=== PATIENT | male | born 1940 | race Caucasian/White ===

== ENCOUNTER → 2019-01-26 | Outpatient (CLI) | payer OTHER ==
[~2019-01-26] MED LIST: ELIQUIS5 MG PO; FLONASE 0.05%50 MCG NASAL; PRAVACHOL80 MG PO; PRILOSEC 20 MG20 MG PO; PRINIVIL5 MG PO; XANAX 0.5 MG0.5 MG PO
== END ==
LOC: M.MRI 07:55
DX: S83.272A Complex tear of lateral meniscus, current injury, left knee, initial encounter (principal); S83.242A Other tear of medial meniscus, current injury, left knee, initial encounter; M17.12 Unilateral primary osteoarthritis, left knee; M25.762 Osteophyte, left knee; M25.462 Effusion, left knee; M94.262 Chondromalacia, left knee; M65.862 Other synovitis and tenosynovitis, left lower leg; G89.29 Other chronic pain; X58.XXXA Exposure to other specified factors, initial encounter; Y93.89 Activity, other specified; Y92.89 Other specified places as the place of occurrence of the external cause; Y99.8 Other external cause status

== ENCOUNTER 2019-02-09 08:59 | Inpatient (IN) | payer OTHER ==
[2019-01-29 09:32] LABS: ABSOLUTE BASOPHILS 0.1 thou/uL (0.0-0.2); ABSOLUTE EOSINOPHILS 0.2 thou/uL (0.0-0.7); ABSOLUTE LYMPHOCYTES 0.9 thou/uL (0.8-5.3); ABSOLUTE MONOCYTES 0.3 thou/uL (0.0-1.2); ABSOLUTE NEUTROPHILS 3.8 thou/uL (1.6-8.1); BASOPHILS 1.1 %; EOSINOPHILS 3.7 %; HEMOGLOBIN 14.2 gm/dL (14.0-18.0); LYMPHOCYTES 16.8 %; MCH 29.5 pg (26.0-34.0); MCHC 33.7 g/dL (28.0-37.0); MCV 87.7 fL (80.0-100.0); MONOCYTES 5.3 %; MPV 8.3 fl. (7.2-11.1); NUCLEATED RBCS 0 /100WBC; PLATELET COUNT* 168 thou/uL (150-400); POLYS 73.1 %; RBC 4.79 mil/uL (4.50-6.00); RDW-CV 13.8 % (10.5-14.5); WBC 5.2 thou/uL (4.0-11.0)
[2019-01-29 09:40] LABS: APTT 32.2 Seconds (25.0-31.3); INR 1.1; PROTIME 11.6 Seconds (9.20-11.50)
[2019-01-29 09:48] LABS: ALBUMIN 3.7 g/dL (3.4-5.0); CREATININE 1.3 mg/dL (0.6-1.3); POTASSIUM 4.2 mmol/L (3.5-5.1); TOTAL BILIRUBIN 0.7 mg/dL (<0.1-1.0); TOTAL PROTEIN 7.6 g/dL (6.4-8.2)
[2019-01-29 10:33] LABS: ESR (SEDRATE) 30 mm/hr (0-20)
--- NOTE | 2019-01-29 15:08 | EKG ---
[place] [address] ELECTROCARDIOGRAM REPORT Name: GLENNY KIMBLE Room: [facility]#: [id number] Admission: Attend Phys: Kathy Ro Discharge: Date of : 38 Report #: [id number] THIS REPORT FOR: //name// [facility] Test Date: 2019-01-29 Test Time: 09:19:56 Pat Name: GLENNY KIMBLE Department: Room: Gender: M It Business Analyst: : 1940 Requested By: Laureano Hooker Order Number: [id number] Reading MD: Sid Adorno Measurements Intervals [place] Rate: 59 P: 10 OK: 213 QRS: 36 QRSD: 107 T: 12 QT: 424 QTc: 420 Interpretive Statements Sinus rhythm Borderline prolonged OK interval Low voltage, extremity and precordial leads Compared to ECG 02/21/2006 13:38:36 Low QRS voltage now present Atrial fibrillation no longer present ST (T wave) deviation no longer present Electronically Signed On 01-29-2019 15:07:59 CDT by Sid Adorno [email or web address] <ELECTRONICALLY SIGNED> By: Sid Adorno MD, [facility] 01/29/19 1507 8 8 Sid Adorno MD, [facility] /EPI
[2019-01-29 22:06] LABS: GLYCOHEMOGLOBIN (HGB A1C) 5.6 % (4.8-5.6)
[~2019-02-09] VITALS: Ht 185.4 cm; Wt 106.6 kg
[2019-02-09] MEDS ORDERED: DILTIAZEM 24HR180 M1 PO (09:32)
[2019-02-09] MEDS ORDERED: RESVERATROL250 MG PO (09:41)
[2019-02-09 10:00] VITALS: BP 137/65
[2019-02-09 15:36] VITALS: BP 112/62
--- NOTE | 2019-02-09 16:23 | NUR ---
PT ADMITTED TO UNIT. PT IS ALERT AND ORIENTED. PT HAD LEFT KNEE REPLACEMENT, DRESSING C.D.I. ICE PACK TO KNEE. PULSES 2+. PT IS ON 2 LITERS O2 WITH CAPNO IN PLACE. PT IS RESTING IN BED, WEIGHT BEARING TOLERATED. PT HAS A HISTORY OF [place], WILL BE X2 ASSIST WITH WALKER AND GAIT BELT WHILE AMBULATING. PT HAS STEPHANIE HOSE ON BILAT, SCD IN PLACE. PT STATES PAIN MINIMAL AND WANTS TO WAIT FOR PAIN MEDS, PT EDUCATED ON KEEPING ON TOP OF PAIN MEDS, AND TO HIT CALL LIGHT WHEN READY. FALL RISK PRECAUTIONS IN PLACE. WILL CONTINUE TO MONITOR.
--- NOTE | 2019-02-09 17:07 | NUR ---
PT REMAINED ALERT AND ORIENTED. PT RESTING IN BED. PAIN MEDS GIVEN ORDERED. FALL RISK PRECAUTIONS IN PLACE. HOURLY ROUNDING COMPLETED. WILL CONTINUE TO MONITOR.
[2019-02-10] VITALS (7 sets, daily range): BP systolic 99–101; BP diastolic 59–60
[2019-02-10 04:35] LABS: CALCIUM 9.2 mg/dL (8.5-10.1); CREATININE 1.3 mg/dL (0.6-1.3); MAGNESIUM 1.6 mg/dL (1.8-2.4); POTASSIUM 5.5 mmol/L (3.5-5.1)
--- NOTE | 2019-02-10 04:45 | NUR ---
PT REMAINED A&O X 4. VITALS, SpO2 STABLE. PAIN CONTROLLED WITH OXY IR. NO NAUSEA OR VOMITING. IV ANTIBIOTICS GIVEN ORDERED. PT VOID WITH NO ISSUE. DRESSING ON L KNEE CLEAN AND INTACT. PT EDUCATED ON PAIN MANAGEMENT AND VERBALIZED UNDERSTANDING. ICE PACK IN PLACE. WILL CONTINUE TO MONITOR.
[2019-02-10 05:10] LABS: HEMATOCRIT 37.1 % (42.0-52.0); HEMOGLOBIN 12.7 gm/dL (14.0-18.0); MCH 29.7 pg (26.0-34.0); MCHC 34.3 g/dL (28.0-37.0); MCV 86.7 fL (80.0-100.0); MPV 8.4 fl. (7.2-11.1); NUCLEATED RBCS 0 /100WBC; PLATELET COUNT* 177 thou/uL (150-400); RBC 4.27 mil/uL (4.50-6.00); RDW-CV 13.7 % (10.5-14.5); WBC 10.4 thou/uL (4.0-11.0)
[2019-02-10 06:04] LABS: ABSOLUTE LYMPHOCYTES 0.5 thou/uL (0.8-5.3); ABSOLUTE MONOCYTES 0.2 thou/uL (0.0-1.2); ABSOLUTE NEUTROPHILS 9.7 thou/uL (1.6-8.1); ANISOCYTOSIS 1+; PLATELET ESTIMATE ADEQUATE; POIKILOCYTOSIS 1+
--- NOTE | 2019-02-10 10:06 | EKG ---
[place] [address] ELECTROCARDIOGRAM REPORT Name: GLENNY KIMBLE Room: [address] ADM IN M.R.#: [id number] Admission: 02/09/19 Attend Phys: Kathy Ro Discharge: Date of : 38 Report #: [id number] THIS REPORT FOR: //name// [facility] Test Date: 2019-02-10 Test Time: 08:24:07 Pat Name: GLENNY KIMBLE Department: Room: [address] Gender: M Senior Power Plant Operator: : 1940 Requested By: Rajesh Culver Order Number: [id number] Reading MD: Cam Tang Measurements Intervals [place] Rate: 52 P: ND: QRS: 47 QRSD: 105 T: 54 QT: 433 QTc: 403 Interpretive Statements nsr bradycardia Low voltage, precordial leads Compared to ECG 01/29/2019 09:19:56 Junctional rhythm now present Sinus rhythm no longer present Electronically Signed On 02-10-2019 10:05:35 CDT by Cam Tang [email or web address] <ELECTRONICALLY SIGNED> By: Cam Tang MD, [facility] 02/10/19 1005 0824 0824 Cam Tang MD, [facility] /EPI
[2019-02-10] MEDS ORDERED: SENNA PLUS TAB1 EACH PO (14:47)
--- NOTE | 2019-02-10 14:57 | NUR ---
PT.LIVES AT HOME WITH . SHE WILL BE ABLE TO ASSIST HIM NEEDED. HE HAS 12 STAIRS TO GET INSIDE HIS HOME BUT DID STAIRS WITH THERAPY AND DID FINE. E HAS A FWW IN ROOM FROM HOME. IS ALREADY ON A BLOOD THINNER AT HOME FOR AFIB-ELIQUIS 5 MG. HE IS NORMALLY INDEPENDENT AT HOME. HE WENT TO [facility] PRIOR TO [facility] AND WOULD LIKE TO USE THEM AGAIN.
[2019-02-10] MEDS ORDERED: TRAMADOL 50 MG50 MG PO (15:00)
[2019-02-10] MEDS ORDERED: OXYCODONE HCL 55 MG PO (15:01)
--- NOTE | 2019-02-10 15:49 | NUR ---
PT GIVEN PRESCRIPTIONS, CARE NOTES, AND DISCHARGE ORDERS. IV REMOVED. OUTPATIENT THERAPY SET UP. PT DENIED ANY FURTHER QUESTIONS. FALL RISK PRECAUTIONS IN PLACE. HOURLY ROUNDING COMPLETED. PT LEFT WITH SPOUSE WITH WHEELCHAIR TO HOME.
--- NOTE | 2019-02-10 17:08 | NUR ---
RECIEVED O.T. ORDER. WILL DEFER TO P.T. AT THIS TIME. PLEASE ORDER FURTHER O.T. SERVICES IF NEEDED.
--- NOTE | 2019-02-11 07:44 | OP ---
[address] [address] OPERATIVE REPORT Name: GLENNY KIMBLE Room: [address] IN M.R.#: [id number] Admission: 02/09/19 Attend Phys: Kathy Ro Discharge: 02/10/19 Date of : 38 Report #: [id number] THIS REPORT FOR: //name// CC: Laureano Vivar DICTATED BY: Mc Bill DO DATE OF SERVICE: 02/09/2019 PREOPERATIVE DIAGNOSIS: Left knee advanced degenerative joint disease. POSTOPERATIVE DIAGNOSIS: Left knee advanced degenerative joint disease. OPERATION PERFORMED: Left total knee arthroplasty utilizing [employer] Visionaire system with the following components: 1. A size 9 left cruciate stabilized Oxinium femoral components. 2. A size 8 left Journey tibial baseplate. 3. A size 38 mm oval patellar component. 4. A size 9 mm thickness articular insert. 5. Two bags of Palacos regular bone cement. SURGEON: Laureano Hooker DO BACON SKINNER: Mc Bill DO ANESTHESIA: General plus local. ESTIMATED BLOOD LOSS: 100 mL ANTIBIOTICS: IV Ancef 2 g given preoperatively. COMPLICATIONS: None. DISPOSITION: Stable to PACU. FLUIDS: Lactated Ringer's. DRAINS: None. SPECIMENS: None. INDICATIONS: The patient is a pleasant 78-year-old male who has been followed in orthopedic clinic for his longstanding left knee pain. He had attempted and failed conservative trials with anti-inflammatories, exercise program with [facility] [address] [place] [address] OPERATIVE REPORT Name: GLENNY KIMBLE Ara Room: [address] IN M.R.#: [id number] Admission: 02/09/19 Attend Phys: Kathy Ro Discharge: 02/10/19 Date of : 38 Report #: [id number] attempted weight loss and intra-articular steroid injections. Despite trying all of these things, he continued to suffer with knee pain, which was impacting his overall quality of life and making it difficult for him to perform his activities of daily living; therefore, we did recommend a total knee arthroplasty for him. Risks, indications and treatment alternatives were reviewed in great detail, and the patient was in agreement with this treatment plan. He did sign informed consent. DESCRIPTION OF PROCEDURE: The patient was identified in the preoperative holding area. Questions were answered. He identified the left knee as operative side. This was marked. He was transferred to the operating suite and placed in the supine position where general anesthesia was then induced. A well-padded tourniquet was placed on left proximal thigh. This was inflated for a total of 66 minutes throughout the procedure to 295 mmHg. Left lower extremity was then sterilely prepped and draped in usual fashion. Timeout was then performed to confirm our safety checklist. Everyone in room was in agreement. A standard midline incision was marked out. A 20 blade scalpel was then used to sharply dissect through skin and subcutaneous tissue down to the level of capsule. The capsule layer was cleaned off and a new scalpel was then used to perform our standard medial parapatellar incision. At this time, the standard subperiosteal flaps were developed off the proximal tibia. The patella was then everted and the large portion of the fat pad, which was scarred was excised. Anterior cruciate ligament was also excised along with excessive synovium, which was in the notch. Our premade distal femur cutting block was then locked into position. This fit very nicely and had been excellent fit onto the distal femur. It is where this was then pinned into position. Our distal femur cut was then made through the premade block. We then proceeded with our planned distal femur cut with a size 9 5-in-1 cutting block. Cutting block was then pinned into position and the cuts were made sequentially beginning with the anterior and anterior chamfer followed by posterior condylar and the other chamfer cuts. Cutting block was then removed along with the cut surfaces. Attention was then taken to the proximal tibia where our premade cutting block was placed into position. This was found to also fit very nicely. This was pinned into position and reciprocating saw was used through the cutting block to make our proximal tibial cut while we made sure to protect our medial, lateral and posterior structures. Cutting block was then removed and an osteotome and bone tenaculum were used to free our tibial cut. This was released from the soft tissues with electrocautery. At this time, excessive osteophytes and meniscal remnants along with the ACL remnant were removed. The bony cut surfaces were thoroughly irrigated. Our femur box cut was then made with the reamer and punch through the box cut guide. This was removed along with the bony cut surfaces. We made sure that all the bone was removed from it. A trial tibia was then pinned into position in the appropriate rotation utilizing our premade pin holes. The appropriate size spacer was then placed and the knee was taken through full range of motion and was found to have excellent extension and flexion and was stable and varus and valgus stressing. Attention was taken to [address] [address] OPERATIVE REPORT Name: GLENNY KIMBLE Room: [address] IN [place].#: [id number] Admission: 02/09/19 Attend Phys: Kathy Ro Discharge: 02/10/19 Date of : 38 Report #: [id number] the patella. This was found to have severe degenerative changes; therefore, we did proceed with resurfacing. The Biomet reaming system was utilized. The patella was sized. The appropriate sized reamer was clamped into position. This was then reamed down to an approximately 16 mm thickness. This was found to remove all diseased cartilage and to give us a nice flat smooth surface. The patella was then sized and appropriate peg hole guide was used to drill the patellar peg holes. A patellar trial was then placed through full range of motion and was found to track appropriately. The trial spacer and patellar components were then removed along with the trial femoral component. The tibia was then reamed and punched through the tibial trial. The trial baseplate was then removed and the bony cut surfaces were thoroughly irrigated and the bony debris was removed. The bony cut surfaces were dried and meanwhile, the bone cement was mixed on the back table. This was applied to the back surfaces of the components as well as within the interstices of the bone. The anesthetic cocktail was used to inject the posterior capsule as well as some was used in the periosteum and surrounding subcutaneous tissues. A final tibial component was impacted into position followed by the femoral components and finally, the patellar component was clamped into position. All the excessive bone cement was removed. The knee was once again taken through a full range of motion and was found to have excellent extension, flexion and stability throughout range of motion with a 9 mm tibial bearing; therefore, this was selected as our final component. This was swapped out for the trial component and once again finally taken through range of motion and was found to have 0-135 degrees of motion with symmetrical medial and lateral gapping. The knee was then held at 90 degrees of flexion while the cement was allowed to dry. The knee was thoroughly irrigated and vancomycin powder was sprinkled throughout. The capsule layer was then closed with #1 Vicryl suture followed by running #1 Quill. The PRP was then injected into the capsule. The knee was once again irrigated. The dermal layer was then closed with simple interrupted 2-0 Monocryl suture. A running 3-0 Stratafix suture was then used on the subcuticular layer. Dermabond skin glue was then placed on the skin. A sterile Mepilex dressing was applied. STEPHANIE hose were then applied. The patient was awakened from general anesthetic and transferred to the PACU in stable condition. Sponge and needle counts were correct x 2. Postoperatively, the patient will receive 2 doses of IV antibiotics within 23 hours. The patient will be on anticoagulation therapy along with SCDs and STEPHANIE hose. <ELECTRONICALLY SIGNED> By: John Harmon DO 02/11/19 0744 [id number] [id number] Hooker DO /inder
== END 2019-02-10 15:55 | disposition home health service (06) | DRG 470 ==
LOC: M.SUR → M.TBA 13:57 → M.ORTHSURG 13:57 → M.SUR 14:47 → M.ORTHSURG 15:33
PROVIDERS: Family Medicine; Orthopaedic Surgery; ADMIT Internal Medicine
PROC: 0SRD069 Replacement of Left Knee Joint with Oxidized Zirconium on Polyethylene Synthetic Substitute, Cemented, Open Approach (ICD-10-PCS; principal; 2019-02-09)
DX: M17.12 Unilateral primary osteoarthritis, left knee (principal); D68.59 Other primary thrombophilia; I50.32 Chronic diastolic (congestive) heart failure; K21.9 Gastro-esophageal reflux disease without esophagitis; E78.5 Hyperlipidemia, unspecified; I48.2 Chronic atrial fibrillation; Z79.899 Other long term (current) drug therapy; Z88.1 Allergy status to other antibiotic agents; Z90.49 Acquired absence of other specified parts of digestive tract; Z98.42 Cataract extraction status, left eye; Z98.41 Cataract extraction status, right eye